=== PATIENT | male | born 1940 | race Caucasian/White ===

== ENCOUNTER 2021-03-05 09:34 | Emergency (ER) | payer MEDICARE, SELFPAY ==
--- NOTE | ~2021-03-05 | XR_ITS ---
EXAMINATION: XR chest 2V DATE: 03/05/2021 09:57 INDICATION: Cough TECHNIQUE: PA and lateral views of the chest are obtained. COMPARISON: 01/20/2015 FINDINGS: The lungs are free of acute opacities. There is no pleural effusion or pneumothorax. Cardio megaly is noted. There are bridging osteophytes at multiple levels in the spine, consistent with diff use idiopathic skeletal hyperostosis (DISH). A triple lead cardiac pacemaker of the left chest wall e nds with leads in expected locations. A healed fracture of the distal right clavicle is noted. IMPRESSION: 1. No acute cardiopulmonary abnormality. 2. Cardiomegaly. Reviewed, dictated and finalized at location A.
--- NOTE | 2021-03-05 09:41 | ED.URI ---
HPI - URI/Sore Throat General Chief Complaint: Upper Respiratory Infection Stated Complaint: nasal drainage/sore throat/cough/mucus Time Seen by Provider: 03/05/21 09:42 Source: patient and RN notes reviewed Mode of arrival: ambulatory Limitations: no limitations History of Present Illness HPI Narrative: 80-year-old male presents with concern for nasal drainage, postnasal drainage, cough that started yesterday. He denies shortness of breath, chest pain, diaphoresis. Denies body aches, chills, sweats. Reports he has been taking Benadryl which helps with the drainage. He reports he has been fully Covid vaccinated, denies any known sick contacts. Denies nausea, vomiting, diarrhea. MD elicited complaint: cough Related Data Home Medications Medication Instructions Recorded Confirmed allopurinol 100 mg PO DAILY 03/05/21 03/05/21 atorvastatin 20 mg PO DAILY 03/05/21 03/05/21 bupropion HCl 75 mg PO DAILY 03/05/21 03/05/21 carvedilol 25 mg PO DAILY 03/05/21 03/05/21 finasteride 5 mg PO DAILY 03/05/21 03/05/21 furosemide 20 mg PO DAILY 03/05/21 03/05/21 levothyroxine 100 mcg PO DAILY 03/05/21 03/05/21 Allergies Allergy/AdvReac Type Severity Reaction Status Date / Time No Known Allergies Allergy Unknown Unverified 03/07/17 09:16 Review of Systems Review of Systems: Narrative: CONSTITUTIONAL: Denies malaise, chills, sweats, or fever. EYES: Denies visual changes, redness, or discharge. ENT: Reports rhinorrhea, congestion, postnasal drainage. Denies sinus pain, otalgia and sore throat. CARDIOVASCULAR: Denies chest pain, palpitations, or edema. RESPIRATORY: Reports cough. Denies dyspnea. GASTROINTESTINAL: Denies abdominal pain, nausea, vomiting, diarrhea SKIN: Denies rash or itching. MUSCULOSKELETAL: Denies myalgia. NEUROLOGIC: Denies headache. All systems reviewed & are unremarkable except as noted in HPI and below PMFSH Social History Social History Gender identity (if verbalized by the patient): Male Comments At time of signature, agree with nursing past medical, surgical, social and family history. There is no relevant family history pertinent to the presenting complaint Exam Narrative: Exam Narrative: GENERAL: Well-appearing, well-nourished, and in no acute distress. HEAD: Normocephalic EYES: PERRLA, conjunctivae clear ENT: Nares clear, turbinates erythematous, clear discharge. Mucous membranes moist. TM pearly meza with sharp light reflex bilaterally; no tragal tenderness. Oropharynx not erythematous without lesions. Tonsils not enlarged and without exudate, no drooling, no hoarseness, no trismus, uvula midline. NECK: Supple. No lymphadenopathy CHEST: Clear to auscultation, breath sounds equal. No wheezing, rhonchi, rales, or stridor. No respiratory distress, speaks in full sentences. HEART: Regular rate and rhythm. No murmur heard. SKIN: Warm, dry, no rash. NEURO: Alert and oriented x3. PSYCH: Normal mood and affect Course Course Emergency Course: Patient is aware of diagnosis, understands and agrees to treatment plan. Anticipatory guidance given. Patient agrees to follow-up as directed and is aware of reasons to seek care at the emergency department. Portions of this record may have been created with voice recognition software Vital Signs Vital signs: Vital Signs Temperature 96.6 F L 03/05/21 09:44 Pulse Rate 84 03/05/21 09:44 Respiratory Rate 12 03/05/21 09:44 Blood Pressure 130/82 03/05/21 09:44 Pulse Oximetry 97 03/05/21 09:44 Temperature 96.6 F L 03/05/21 09:44 Pulse Rate 84 03/05/21 09:44 Respiratory Rate 12 03/05/21 09:44 Blood Pressure 130/82 03/05/21 09:44 Pulse Oximetry 97 03/05/21 09:44 Reviewed. MDM - URI/Sore Throat MDM Narrative Medical decision making narrative: Differential diagnosis considered: Piper virus, strep pharyngitis, allergic rhinitis, upper respiratory tract infection, sinusitis, rhinosinusitis, nasopharyngitis. viral pharyngitis, otitis medi
[2021-03-05 09:44] VITALS: BP 130/82; PULSE 84; RESP 12; TEMP 35.9; O2SAT 97
== END 2021-03-05 10:17 | disposition home or self-care (01) ==
PROVIDERS: Emergency Provider Nurse Practitioner
DX: R05 Cough (principal); I48.91 Unspecified atrial fibrillation; E78.00 Pure hypercholesterolemia, unspecified; I10 Essential (primary) hypertension; Z96.653 Presence of artificial knee joint, bilateral; Z96.643 Presence of artificial hip joint, bilateral
CPT/HCPCS: 71046; 99203; G0463

== ENCOUNTER 2021-03-12 09:58 | Emergency (ER) | payer MEDICARE, SELFPAY ==
--- NOTE | 2021-03-12 10:03 | ED.URI ---
HPI - URI/Sore Throat General Chief Complaint: Upper Respiratory Infection Stated Complaint: cough/mucus Time Seen by Provider: 03/12/21 10:03 Source: patient, RN notes reviewed and old records reviewed Mode of arrival: ambulatory Limitations: no limitations History of Present Illness HPI Narrative: 80-year-old male returns to the [facility] with complaints of a continued cough. Had been using medication prescribed and states that he is not getting any better. states that he is on day 8 was seen 4 March 22 for the same. Patient states that his family was concerned because he was seen a week ago and he has not all better. States that his family made him come in and get rechecked. Patient has a history of CHF. States that he is taking his medication daily. +1 edema noted bilateral lower extremities, patient states that it is normal. No new swelling, chest pain, abdominal pain. States that he is fully vaccinated against Covid MD elicited complaint: cough Related Data Home Medications Medication Instructions Recorded Confirmed allopurinol 100 mg PO DAILY 03/05/21 03/05/21 atorvastatin 20 mg PO DAILY 03/05/21 03/05/21 bupropion HCl 75 mg PO DAILY 03/05/21 03/05/21 carvedilol 25 mg PO DAILY 03/05/21 03/05/21 dabigatran etexilate [Pradaxa] 150 mg PO DAILY 03/05/21 03/05/21 finasteride 5 mg PO DAILY 03/05/21 03/05/21 furosemide 20 mg PO DAILY 03/05/21 03/05/21 levothyroxine 100 mcg PO DAILY 03/05/21 03/05/21 montelukast 10 mg PO DAILY 03/05/21 03/05/21 trazodone 100 mg PO DAILY 03/05/21 03/05/21 Allergies Allergy/AdvReac Type Severity Reaction Status Date / Time No Known Allergies Allergy Unknown Unverified 03/07/17 09:16 Review of Systems Review of Systems: All systems reviewed & are unremarkable except as noted in HPI and below Constitutional: Constitutional: Reports no additional constitutional complaints, Denies chills and Denies fever(s) Eyes: Eyes: Reports no additional eye complaints ENT: Reports system reviewed and no additional complaints, except as documented Cardiovascular: Cardiovascular: Reports no additional cardiovascular complaints and Denies chest pain Respiratory: Respiratory: Reports as per HPI, Denies chest congestion, Reports cough, Denies dyspnea and Denies wheezing Gastrointestinal: Gastrointestinal: Reports no additional gastrointestinal complaints, Denies abdominal pain, Denies nausea and Denies vomiting Musculoskeletal: Musculoskeletal: Reports no additional musculoskeletal complaints Integumentary/Breasts: Skin/Breast: Reports system reviewed and no additional complaints, except as docu Neurologic: Reports system reviewed and no additional complaints, except as documented Psychiatric: Psychiatric: Reports no additional psychiatric complaints Allergic/Immunologic: Allergic/Immunologic: Reports no additional allergic/immunologic complaints [facility] Past Medical History Medical History (Updated 03/12/21 @ 10:16 by Kerry Pope) Heart failure High cholesterol Thyroid disease Social History Social History Gender identity (if verbalized by the patient): Male Comments At the time of my signature, I reviewed and agree with the nursing past medical, surgical, social, and family history. There is no relevant family history pertinent to the patient complaint. Exam Const: General: no acute distress and alert Nutritional Appearance: well nourished and obese Orientation/consciousness: patient oriented x3 HENMT: Head: normal to inspection Ears: external ears normal, TM's normal bilaterally and EAC's normal Eyes: Conjunctivae: conjunctivae normal Pupils: Equal, round and reactive pupils present Neck: Neck: normal visual inspection, no lymphadenopathy and no meningeal signs Chest: Chest palpation & inspection: normal inspection of the chest and Pacemaker present Resp: Effort & Inspection: normal respiratory effort and no use of acces
[2021-03-12 10:05] VITALS: BP 159/88; PULSE 76; RESP 16; TEMP 35.9; O2SAT 98
== END 2021-03-12 10:26 | disposition home or self-care (01) ==
PROVIDERS: Emergency Provider Nurse Practitioner
DX: J40 Bronchitis, not specified as acute or chronic (principal); E78.00 Pure hypercholesterolemia, unspecified; I48.91 Unspecified atrial fibrillation; I11.0 Hypertensive heart disease with heart failure; I50.9 Heart failure, unspecified; E07.9 Disorder of thyroid, unspecified
CPT/HCPCS: 99213; G0463

== ENCOUNTER 2021-03-22 14:12 | Emergency (ER) | payer MEDICARE, SELFPAY ==
--- NOTE | 2021-03-22 14:17 | ED.EXTPRO ---
HPI - Extremity Problem General Chief complaint: Extremity Problem,Nontraumatic Stated complaint: BOTH FEET RED/PURPLE/RASH Time Seen by Provider: 03/22/21 14:17 Source: patient and RN notes reviewed History of Present Illness HPI Narrative: Patient is an 80-year-old male who presents the urgent care with complaints of bilateral lower legs turning purple and red . Patient states that this is been a recurrent issue for him for many years but recently started again 2 days ago. Patient states that whenever he elevates the legs, it goes away. Patient states that he called his physician who told him to be checked out at the urgent care. Patient denies of any shortness of breath, lower extremity swelling, or chest pain. Patient denies of any pain to the lower extremities. No other acute complaints. No acute distress noted. Patient aware of the plan of care. Some parts of this dictation were generated by voice recognition software and may contain typographical and/or grammatical inaccuracies. Related Data Home Medications Medication Instructions Recorded Confirmed allopurinol 100 mg PO DAILY 03/05/21 03/05/21 atorvastatin 20 mg PO DAILY 03/05/21 03/05/21 bupropion HCl 75 mg PO DAILY 03/05/21 03/05/21 carvedilol 25 mg PO DAILY 03/05/21 03/05/21 dabigatran etexilate [Pradaxa] 150 mg PO DAILY 03/05/21 03/05/21 finasteride 5 mg PO DAILY 03/05/21 03/05/21 furosemide 20 mg PO DAILY 03/05/21 03/05/21 levothyroxine 100 mcg PO DAILY 03/05/21 03/05/21 montelukast 10 mg PO DAILY 03/05/21 03/05/21 trazodone 100 mg PO DAILY 03/05/21 03/05/21 Allergies Allergy/AdvReac Type Severity Reaction Status Date / Time No Known Allergies Allergy Unknown Unverified 03/07/17 09:16 Review of Systems Review of Systems: Narrative: CONSTITUTIONAL: Denies fever, chills, or sweats. EYES: Denies visual changes, redness, or discharge. ENT: Denies rhinorrhea, congestion, sore throat, or otalgia. CARDIOVASCULAR: Denies chest pain, palpitations, or edema. RESPIRATORY: Denies cough or dyspnea. GASTROINTESTINAL: Denies abdominal pain, nausea, vomiting, or diarrhea. GENITOURINARY: Denies dysuria or hematuria. SKIN: Denies rash or itching. MUSCULOSKELETAL: Reports of redness/purple color changes in bilateral lower legs without pain NEUROLOGIC: Denies headache, numbness, or weakness. All other systems reviewed are negative, except as documented in HPI. [facility] Past Medical History Medical History (Updated 03/22/21 @ 14:36 by JAMAL Holman) Heart failure High cholesterol Thyroid disease Social History Social History Gender identity (if verbalized by the patient): Male Comments At the time of my signature, I reviewed and agree with the nursing past medical, surgical, social, and family history. There is no relevant family history pertinent to the patient complaint. Exam Narrative: Exam Narrative: GENERAL: This is a well-nourished, well-developed patient, in no apparent distress. HEAD: normocephalic, atraumatic. EYES: PERRL. Sclera clear/white. Vision is grossly intact. EARS: External ears normal NOSE: External nose normal with no obvious nasal discharge, nares without redness, no rhinorrhea. THROAT: Mucous membranes moist NECK: Neck supple CARDIOVASCULAR: Regular rate and rhythm without murmurs, gallops, or rubs. RESPIRATORY: Clear to auscultation. Breath sounds equal bilaterally. No wheezes, rales, or rhonchi. SKIN: warm, intact with no suspicious lesions or rash, good texture and turgor. NEURO: awake, alert, and oriented to person, place and time. There were no obvious focal neurologic abnormalities. EXTREMITIES: Severe chronic venous insufficiency to bilateral lower extremities with ecchymosis extending from the distal tip of the toes above the ankle with moderate tenderness; notable bilateral pedal pulses with decreased capillary refill Course Vital Signs Vital signs: Vital Signs Temp
[2021-03-22 14:20] VITALS: BP 139/65; PULSE 64; RESP 18; TEMP 36.5; O2SAT 98
== END 2021-03-22 14:43 | disposition left against medical advice (07) ==
PROVIDERS: Emergency Provider Nurse Practitioner Family
DX: I87.2 Venous insufficiency (chronic) (peripheral) (principal); I11.0 Hypertensive heart disease with heart failure; I50.9 Heart failure, unspecified; E78.00 Pure hypercholesterolemia, unspecified; I48.91 Unspecified atrial fibrillation; E07.9 Disorder of thyroid, unspecified; Z96.653 Presence of artificial knee joint, bilateral; Z96.643 Presence of artificial hip joint, bilateral
CPT/HCPCS: 99212; G0463

== ENCOUNTER → 2021-10-19 09:49 | Outpatient (CLI) | payer MEDICARE, SELFPAY ==
--- NOTE | ~2021-10-19 | XR_ITS ---
XR lumbar spine min 4V DATE: 10/19/2021 10:46 INDICATION: Peripheral sensory neuropathy TECHNIQUE: AP, lateral, bilateral oblique views, coned lateral lumbosacral view COMPARISON: None FINDINGS: Diffuse osteopenia. There is prominent anterior wedge compression fracture deformity of L1. There is suggestion of a comp ression fracture deformity of partially included T10. There is prominent degenerative disc disease at T12-L1, moderate degenerative disc disease at L1 to, L3-4 and severe degenerative disc disease at L4-5 and L5-S1. There is prominent degenerative change at the apophyseal joints with associated grade 1 anterolisthes is at L4-5. The sacroiliac joints are intact. Incidentally noted are multiple calcified faceted gallstones. Status post ventral abdominal wall hernia repair. Status post bilateral total hip arthroplasty. IMPRESSION: Osteopenia Compression pressure fracture deformities of T10 and to a greater extent L1 Multilevel degenerative disc disease, most prominent at L4-5 and L5-S1 Degenerative change at the apophyseal joints with associated grade 1 anterolisthesis at L4-5 Bilateral hip arthroplasty Cholelithiasis Reviewed, dictated and finalized at location B. YLENE [employer] IMPRESSION: Osteopenia Compression pressure fracture deformities of T10 and to a greater extent L1 Multilevel degenerative disc disease, most prominent at L4-5 and L5-S1 Degenerative change at the apophyseal joints with associated grade 1 anterolist hesis at L4-5 Bilateral hip arthroplasty Cholelithiasis
== END ==
DX: G60.8 Other hereditary and idiopathic neuropathies (principal); M85.88 Other specified disorders of bone density and structure, other site; M51.36 Other intervertebral disc degeneration, lumbar region; M43.16 Spondylolisthesis, lumbar region; Z96.643 Presence of artificial hip joint, bilateral; K80.20 Calculus of gallbladder without cholecystitis without obstruction
CPT/HCPCS: 72110

== ENCOUNTER 2021-12-27 14:26 | Outpatient (CLI) | payer MEDICARE, SELFPAY ==
[2021-12-27 15:29] LABS: Anion Gap 10 mmol/L (8-16); Blood Urea Nitrogen 14 mg/dL (9-20); Calcium 7.8 mg/dL (8.4-10.2); Carbon Dioxide 33 mmol/L (22-30); Chloride 94 mmol/L (98-107); Estimated Glomerular Filt Rate > 60; Glucose 105 mg/dL (65-110); Potassium 2.9 mmol/L (3.4-5.0); Sodium 137 mmol/L (137-145)
[2021-12-27 16:13] LABS: Add Urine Microscopic? YES; Appearance Urine Clear (Clear); Bilirubin Urine Negative (Negative); Blood Urine 1+ (Negative); Color Urine Yellow (Yellow); Glucose Urine UA Negative (Negative); Ketones Urine Negative (Negative); Leukocyte Esterase Ur Negative LEU/UL (Negative); Mucus Urine Rare /lpf; Nitrate Urine Negative (Negative); Protein Urine Negative (Negative); RBC Urine 0-2 /hpf (0-2); Specific Grav Ur 1.011 (1.001-1.035); Squamous Epithelial Cell Urine Rare /hpf (Few); Urobilinogen Urine Negative mg/dL (<2.0); WBC Urine 0-3 /hpf
== END 2021-12-27 14:27 | disposition home or self-care (01) ==
LOC: ANHLAB 14:43
DX: R82.998 Other abnormal findings in urine (principal)
CPT/HCPCS: 36415; 80048; 81001

== ENCOUNTER 2022-01-09 11:39 | Outpatient (CLI) | payer MEDICARE, SELFPAY ==
[2022-01-09 12:19] LABS: Magnesium 1.2 mg/dL (1.6-2.3)
[2022-01-09 12:25] LABS: Appearance Urine Clear (Clear); Bilirubin Urine Negative (Negative); Color Urine Yellow (Yellow); Glucose Urine UA Negative (Negative); Ketones Urine Negative (Negative); Leukocyte Esterase Ur 1+ LEU/UL (NEGATIVE); Nitrate Urine Negative (Negative); Protein Urine Negative (Negative); Specific Grav Ur 1.015 (1.001-1.035); Urobilinogen Urine 0.2 mg/dL (<2.0); pH Urine 6.5 (5.0-9.0)
[2022-01-09 12:29] LABS: Bacteria Urine Trace /hpf; Mucus Urine Rare /lpf; Squamous Epithelial Cell Urine Occasional /hpf (Few); WBC Urine 31-50 /hpf (0-3)
[2022-01-09 12:30] LABS: Add Urine Microscopic? YES; Blood Urine Trace-Intact (Negative)
[2022-01-17 12:56] LABS: Ionized Calcium 4.7 mg/dL (4.8-5.6)
== END 2022-01-09 11:40 | disposition home or self-care (01) ==
LOC: ANHLAB 11:43
DX: R31.29 Other microscopic hematuria (principal)
CPT/HCPCS: 36415; 81001; 82330; 83735; 87086; 87088

== ENCOUNTER → 2022-03-16 11:26 | Outpatient (CLI) | payer MEDICARE, SELFPAY ==
--- NOTE | ~2022-03-16 | XR_ITS ---
XR abdomen/kub 1V 03/16/2022 12:07 INDICATION: Abdominal bloating TECHNIQUE: KUB COMPARISON: None FINDINGS: Bowel gas pattern is normal. There are splenic arterial calcifications. There are gallstone s. There bilateral total hip arthroplasties. There is a penile prosthetic device with reservoir overl marilee the right lower pelvis. Moderate-severe lumbar spondylosis. There is no evidence of free air, ma ss, organomegaly, ascites or obstruction. No abnormal calculi are seen. The bones appear intact. IMPRESSION: 1: No acute abdominal abnormality identified. 2: Cholelithiasis. Reviewed, dictated and finalized at location A.
--- NOTE | ~2022-03-16 | US_ITS ---
US abdomen limited INDICATION: Bloating. PROCEDURE: Realtime right upper abdominal ultrasound. COMPARISON: No prior studies for comparison. FINDINGS: The pancreas is normal without focal mass or pancreatic ductal dilation. Liver echotexture is increased, consistent with fatty infiltration. There is normal directional flow in the portal ve in. There are gallstones. No gallbladder wall thickening or pericholecystic fluid. Common bile duct alfred ures 4.7 mm. No sonographic Timmons's sign. IMPRESSION: 1: Cholelithiasis. 2:Hepatic steatosis. Reviewed, dictated and finalized at location A.
== END ==
DX: R14.0 Abdominal distension (gaseous) (principal); K80.20 Calculus of gallbladder without cholecystitis without obstruction; K76.0 Fatty (change of) liver, not elsewhere classified
CPT/HCPCS: 74018; 76705

== ENCOUNTER → 2022-06-11 09:59 | Outpatient (CLI) | payer MEDICARE, SELFPAY ==
--- NOTE | ~2022-06-11 | XR_ITS ---
EXAM: XR lumbar spine 2-3V DATE: 06/11/2022 11:41 HISTORY: Other intervertebral disc degeneration, lumbar region . COMPARISON: 10/19/2021. FINDINGS: 5 nonrib-bearing lumbar-type vertebral bodies. T12-L1 fusion. Trace 1 to 2 mm retrolisthes is at L1-2. 9 mm anterolisthesis at L4-5. Mild height loss at T10. Mild disc space narrowing at L1-2 and L3-4. Moderate disc space narrowing at L5-S1.Severe narrowing and vacuum phenomenon at L4-5. Mult ilevel facet sclerosis and hypertrophy. No fracture or dislocation. Bilateral hip arthroplasties. Her chris mesh anchors. Aortic calcifications, without evident aneurysm. Cholelithiasis. IMPRESSION: Grade 2 anterolisthesis at L4-5, with severe degenerative disc disease. Elsewhere, there is mild-moderate degenerative disc disease. Multilevel moderate arthropathy. Reviewed, dictated and finalized at location K. IMPRESSION: Grade 2 anterolisthesis at L4-5, with severe degenerative disc dise ase. Elsewhere, there is mild-moderate degenerative disc disease. Multilevel mo derate arthropathy.
--- NOTE | ~2022-06-11 | DEXA_ITS ---
Bone Density Report Name: ALICIA MURRAY Age: 81 Sex: Male Ethnicity: White Date of : 1940 Indication: screening for osteoporosis; height loss; prior fracture; Referring Provider: ENRIQUETA POLANCO Study: Bone densitometry was performed. Exam Date: June 11, 2022 Accession number: [id number] Bone Density: Region BMD T-score Z-score Classification AP Spine (L1-L4) 1.409 2.9 4.1 Normal World Health Organization criteria for BMD impression classify patients as: Normal (T-score at or above -1.0), Osteopenia (T-score between -1.0 and -2.5), or Osteoporosis (T-score at or below -2.5). Clinical Information Provided by Patient: Have had a previous hip or vertebral fracture Has had a low trauma fracture Has 3 or more alcoholic drinks per day Patient maximum height was 74.5 No regular weight bearing exercise Does not regularly consume dairy products Impression: The patient has normal bone mass. The patient has risk factors, including: excessive alcohol use, previous fracture. Discussion: INCREASED RISK OF FRACTURE DUE TO HISTORY OF LOW TRAUMA FRACTURE. The patient's previous fracture puts the patient at high risk of a future fracture. In untreated patients, the risk of osteoporotic fracture increases approximately two-fold for each 1.0 SD decrease in T-score. Low bone density is not the only risk factor for fracture; also consider factors such as patient's age, frailty or poor health, risk of falling, risk of injury, previous osteoporotic fracture, family history of osteoporosis, cigarette smoking, low body weight, etc. Not everyone with a low trauma fracture has osteoporosis; osteomalacia and other metabolic bone disorders should also be considered. Patients who have osteoporosis should be evaluated for specific diseases and conditions (secondary causes) that may cause or contribute to bone loss and fracture risk. National Osteoporosis Foundation (NOF) recommends pharmacologic intervention for patients with a prior low trauma hip or vertebral fracture regardless of BMD T-score. The patient should follow a healthful lifestyle (good nutrition with adequate calcium and vitamin D, and appropriate weight-bearing exercise). Follow-Up: Consider a repeat BMD and Vertebral Fracture Assessment (VFA) exam in 2 years or sooner if medically necessary, to reassess this patient's status. Reported by: EN on 06/11/2022 12:20:00 PM. Reviewed, dictated and finalized at location AHuyen [facility] CENTERDenise
== END ==
DX: M51.36 Other intervertebral disc degeneration, lumbar region (principal); M85.88 Other specified disorders of bone density and structure, other site; M43.16 Spondylolisthesis, lumbar region
CPT/HCPCS: 72100; 77080

== ENCOUNTER 2022-08-26 10:45 | Emergency (ER) | payer MEDICARE, SELFPAY ==
--- NOTE | ~2022-08-26 | CT_ITS ---
CTA OF lower cavity left EXAMINATION: CTA LE LT DATE: 08/26/2022 16:07 INDICATION: Rule out tibial plateau fracture or arterial injury. TECHNIQUE: Computed tomography (CT) of the left lower extremity was performed with 100 mL Omnipaque 3 50 intravenous contrast, timed for arterial enhancement. Automated exposure control and iterative rec onstruction technique were employed. The dose-length product was 764.21 mGy-cm. COMPARISON: X-ray left knee, same date FINDINGS: Scattered calcified atherosclerotic arterial plaques. Short segment obscuration of the popl iteal artery secondary to metal artifact from the knee arthroplasty, which therefore cannot be evalua ok. Patent trifurcation. Large anteromedial subcutaneous hematoma with fluid fluid levels in small f oci of active extravasation. Moderate knee joint effusion. Intact, uncomplicated appearing left knee arthroplasty. Osteopenia. No osseous fracture or dislocation. Diffuse bilateral subcutaneous edema IMPRESSION: Large anteromedial subcutaneous hematoma with small foci of active extravasation. No CT evidence of h ardware related consultation. No acute osseous finding. No acute arterial injury detected, within the limitations noted above. Results reported telephonically to Dr. Gordon by Dr. Mcclure at 4:18 PM on 08/26/2022. Reviewed, dictated and finalized at location K. OTICS PROSTHETICS ASSISTANT IMPRESSION: Large anteromedial subcutaneous hematoma with small foci of active extravasatio n. No CT evidence of hardware related consultation. No acute osseous finding. N o acute arterial injury detected, within the limitations noted above. Results reported telephonically to Dr. Gordon by Dr. Mcclure at 4:18 PM on 2021.
--- NOTE | ~2022-08-26 | CT_ITS ---
EXAMINATION: CT brain wo con DATE: 08/26/2022 12:40 INDICATION: Fall with head injury TECHNIQUE: Computed tomography (CT) of the head was performed without intravenous contrast. Sagittal and coronal reconstructions were performed. The mA was adjusted according to patient size. Iterative reconstruction technique was employed. The dose-length product was 605.33 mGy-cm. COMPARISON: None FINDINGS: There is a screw in the left temporoparietal skull. Correlate with surgical history. No fracture. No acute intracranial hemorrhage, acute infarction or abnormal extra axial fluid collection. There is mi ld scattered white matter hypoattenuation consistent with chronic small vessel ischemic disease. Symm etric prominence of the sulci consistent with moderate age-appropriate diffuse cerebral volume loss. Ventricles are normal and symmetric. No mass/mass effect. Mild mucoperiosteal thickening in bilateral ethmoid sinuses. Changes of right intraocular lens replacement. The orbits and mastoid air cells are normal. IMPRESSION: 1. No fracture or acute intracranial process. 2. Age-related changes including moderate diffuse volume loss and mild scattered white matter hypoatt enuation consistent with chronic small vessel ischemic disease. Reviewed, dictated and finalized at location A. ACTORY MIXER IMPRESSION: 1. No fracture or acute intracranial process. 2. Age-related changes including moderate diffuse volume loss and mild scattere d white matter hypoattenuation consistent with chronic small vessel ischemic di sease.
--- NOTE | ~2022-08-26 | XR_ITS ---
EXAMINATION: XR shoulder LT min 2V DATE: 08/26/2022 12:14 INDICATION: Generalized left shoulder pain post fall TECHNIQUE: AP internally and externally rotated, AP oblique externally rotated and transscapular Y vi ews of the left shoulder were obtained. COMPARISON: None FINDINGS: Normal alignment. No fracture. Mild to moderate glenohumeral osteoarthritis with mild nonuniform salima nt space narrowing and moderate-sized marginal osteophytes about the humeral head. Moderate acromiocl avicular osteoarthritis. 3-lead cardiac pacemaker projects over the anterolateral left chest wall wit h the distal tip of one of the leads projecting in the lateral left ventricle likely within a coronar y vein. Visualized portions of the left lung are clear. 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 No acute osseous abnormality. Reviewed, dictated and finalized at location A. 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 No acute osseo us abnormality.
--- NOTE | ~2022-08-26 | CT_ITS ---
EXAMINATION: CT cervical spine wo con DATE: 08/26/2022 12:40 INDICATION: Anterior head injury post fall TECHNIQUE: Computed tomography (CT) of the cervical spine was performed without intravenous contrast. Automated exposure control and iterative reconstruction technique were employed. The dose-length pro duct was 556.19 mGy-cm. COMPARISON: None FINDINGS: Reversal of the normal cervical lordosis. Chronic appearing anterior wedging at C5 with approximately 20% anterior vertebral body height loss. No acute fractures. Moderate to severe disc height loss at C3-C4 through C5-C6 and mild disc height loss at remaining levels from C2-C3 through T1-T2. Posterior disc osteophyte complex at C4-C5 and C5-C6 result in mild central canal stenosis. Multilevel moderat e to severe cervical facet and uncovertebral osteoarthritis which contributes to moderate neural fora frances stenosis on the left. At C3-C4 through C6-C7 and on the right at C3-C4. Cervical soft tissues a re unremarkable. Mild emphysema at the left apex. Partially visualized cardiac pacemaker leads along the left subclavian vein. IMPRESSION: 1. Chronic appearing mild anterior wedging at C5. No acute fracture. 2. Moderate to severe cervical spondylosis. Reviewed, dictated and finalized at location A. MIC TILE SETTER
--- NOTE | ~2022-08-26 | XR_ITS ---
EXAMINATION: XR knee LT min 4V DATE: 08/26/2022 12:14 INDICATION: Anterior left knee swelling and bruising post fall TECHNIQUE: Anteroposterior, 2 oblique and crosstable lateral views of the left knee were obtained COMPARISON: None. FINDINGS: Left total knee arthroplasty which appears well seated in near-anatomic alignment. No periprosthetic lucency to suggest loosening or infection. No fracture. Small left knee joint effusion and/or synovit is at the suprapatellar pouch. More prominent prepatellar soft tissue swelling with increased density which given the history of trauma suggests a likely subcutaneous hematoma. IMPRESSION: 1. Left total knee arthroplasty in near-anatomic alignment. No acute osseous abnormality. 2. Prominent prepatellar soft tissue swelling with possible subcutaneous hematoma. Reviewed, dictated and finalized at location A. INUITY TESTER IMPRESSION: 1. Left total knee arthroplasty in near-anatomic alignment. No acute osseous ab normality. 2. Prominent prepatellar soft tissue swelling with possible subcutaneous hemato ma.
[2022-08-26 11:27] VITALS: BP 100/56; PULSE 73; RESP 16; TEMP 36.1; O2SAT 94
[2022-08-26 13:25] VITALS: BP 135/84; PULSE 73; O2SAT 93
--- NOTE | 2022-08-26 14:55 | ED.GENADULT ---
HPI - General Adult General Chief complaint: Extremity Injury, Lower Stated complaint: left knee injury Time Seen by Provider: 08/26/22 14:36 History of Present Illness HPI narrative: 81-year-old male history of pacemaker, on a blood thinner, presented with mechanical fall with left knee pain. Per patient, he was walking around and turning off lights this morning when he did not see where he was going so had mechanical fall hitting his left knee, and forehead. He also reports falling and scraping the back of his back and left shoulder. He denies LOC, dizziness, nausea, vomiting, chest pain, shortness of breath, abdominal pain, sick contacts. He reports up to date with TDAP Past Medical History: CHF, hypothyroid, pacemaker placement Past Surgical History: Left knee replacement, pacemaker placement Medications: Carvedilol, dabigatran, finasteride, furosemide levothyroxine Allergies: No known drug allergies Social: Denies smoking, alcohol, recreational drugs Related Data Home Medications Medication Instructions Recorded Confirmed allopurinol 100 mg tablet 100 mg PO DAILY 03/05/21 03/05/21 atorvastatin 20 mg tablet 20 mg PO DAILY 03/05/21 03/05/21 bupropion HCl 75 mg tablet 75 mg PO DAILY 03/05/21 03/05/21 carvedilol 25 mg tablet 25 mg PO DAILY 03/05/21 03/05/21 dabigatran etexilate 150 mg 150 mg PO DAILY 03/05/21 03/05/21 capsule (Pradaxa) finasteride 5 mg tablet 5 mg PO DAILY 03/05/21 03/05/21 furosemide 20 mg tablet 20 mg PO DAILY 03/05/21 03/05/21 levothyroxine 100 mcg tablet 100 mcg PO DAILY 03/05/21 03/05/21 montelukast 10 mg tablet 10 mg PO DAILY 03/05/21 03/05/21 trazodone 100 mg tablet 100 mg PO DAILY 03/05/21 03/05/21 Allergies Allergy/AdvReac Type Severity Reaction Status Date / Time No Known Allergies Allergy Unknown Unverified 10/25/21 14:38 Review of Systems Review of Systems: See HPI PMF Past Medical History Medical History Heart failure High cholesterol Thyroid disease Family History Family History Sibling Family history of lung cancer Father Family history of coronary artery disease Social History Social History Smoking status: Never smoker Second hand tobacco smoke exposure: No Alcohol intake: current Gender identity (if verbalized by the patient): Male Comments See HPI Exam Narrative: APPEARANCE: Alert, calm and cooperative, no acute distress, phonating, sitting comfortably during visit, elevated BMI HEAD: Abrasion to forehead, no lacerations, no step-offs. EYES: Pupils equal round an reactive to light, extra ocular movements intact, no conjunctival injection NOSE: Normal no drainage NECK: Supple, without meningismus RESPIRATORY: Lungs clear to auscultation bilaterally, no wheezes/rales/rhonchi, breathing comfortably CARDIOVASCULAR: Regular rate and rhythm, no visible jugular venous distension ABDOMINAL: Soft, nontender, nondistended, no guarding, no rebound/peritoneal signs, no costovertebral tenderness to palpation BACK: Abrasion to left lower back, no lacerations, no midline tenderness to palpation, no step offs EXTREMITIES: Ecchymosis to left knee, non-tense, limited range of motion to knee in the setting of pain and swelling, remaining extremities atraumatic, upper extremities shoulder full range of motion, no gross deformities, palpable peripheral pulses, warm, well perfused, no tenderness to bilateral calves. NEURO: Alert, moving all extremities symmetrically SKIN:: Warm, dry. Normal color PSYCHIATRIC: Normal affect/mood Course Reevaluation(s) Reevaluation #1: CTA results updated by radiologist. Reporting subcuteneous hematoma to anterior knee with blush suggestive of active bleeding. No evidence of arterial injury. Will consult orthopedics for further evaluation Reevaluation #2: Discussion held with orthopedic
[2022-08-26] MEDS: ACETAMINOPHEN 500 MG TABLET 1000 MG PO (15:19)
[2022-08-26] MEDS: MORPHINE SULFATE (*CRX) 4 MG/ML INJ IV PUSH (15:19)
[2022-08-26 15:27] LABS: Basophils Percent Auto 0.6 % (0.2-1.2); Eosinophils Absolute Auto 0.1 K/mm3 (0-0.3); Eosinophils Percent Auto 0.7 % (0-4.4); Hematocrit 39.9 % (42.0-52.0); Hemoglobin 13.3 g/dL (14.0-18.0); Immature Granulocyte Absolute 0.05 K/mm3 (0.00-0.031); Immature Granulocyte Percent A 0.7 % (0-0.5); Lymphocytes Absolute Auto 2.49 K/mm3 (0.9-3.2); Lymphocytes Percent Auto 36.6 % (18.3-44.2); Mean Corpuscular HGB Conc 33.3 g/dl (32-36); Mean Corpuscular Hemoglobin 33.8 pg (26-34); Mean Corpuscular Volume 101.5 fl (80-100); Mean Platelet Volume 10.4 fl (7.4-10.4); Monocytes Absolute Auto 0.7 K/mm3 (0.1-0.6); Monocytes Percent Auto 9.5 % (2.6-8.5); Neutrophils Absolute Auto 3.5 K/mm3 (1.3-6.7); Neutrophils Percent Auto 51.9 % (45.5-73.1); Platelet Count Result 135 k/mm3 (150-375); Red Blood Count 3.93 M/mm3 (4.6-6.20); Red Cell Distribution Width 14.5 % (11.5-14.5); White Blood Count 6.8 K/mm3 (4.5-10.0)
[2022-08-26 15:29] VITALS: BP 120/82; PULSE 78; O2SAT 92
[2022-08-26 15:39] LABS: Anion Gap 5 mmol/L (8-16); Blood Urea Nitrogen 14 mg/dL (9-20); Calcium 8.3 mg/dL (8.4-10.2); Carbon Dioxide 36 mmol/L (22-30); Chloride 92 mmol/L (98-107); Estimated Glomerular Filt Rate > 60; Glucose 108 mg/dL (65-110); Potassium 4.2 mmol/L (3.4-5.0); Sodium 133 mmol/L (137-145)
[2022-08-26 15:40] LABS: Prothrombin Time 21.8 Seconds (11.1-14.7)
== END 2022-08-26 17:59 | disposition home or self-care (01) ==
PROVIDERS: Emergency Provider Emergency Medicine
DX: S80.02XA Contusion of left knee, initial encounter (principal); I50.9 Heart failure, unspecified; W01.0XXA Fall on same level from slipping, tripping and stumbling without subsequent striking against object, initial encounter
CPT/HCPCS: 36415; 70450; 72125; 73030; 73564; 73706; 80048; 85025; 85055; 85610; 96374; 99284; A9270; J2270; Q9967

== ENCOUNTER 2023-03-23 13:54 | Inpatient (IN) | payer MEDICARE, SELFPAY ==
[2023-03-23] VITALS (13 sets, daily range): BP systolic 88–126; BP diastolic 49–84; PULSE 73–80; RESP 12–18; TEMP 35.9–36.6; O2SAT 94–97; BMI 42.8; BMI 41.4
--- NOTE | ~2023-03-23 | XR_ITS ---
EXAMINATION: XR chest 1V portable Exam Date/Time: 03/23/2023 14:15 CDT HISTORY: low bp, lightheaded Comparison: 03/05/2021. RESULT: Lines, tubes, and devices: Left chest AICD with intact leads. Lungs and pleura: Clear. Cardiomediastinal silhouette: Stable. Other: No acute osseous or upper abdominal finding. IMPRESSION: No acute cardiopulmonary process. Reviewed, dictated and finalized at location K.
--- NOTE | 2023-03-23 13:59 | ECG_ITS ---
Measurements Intervals [place] Rate: 73 P: GA: 0 QRS: 216 QRSD: 184 T: 35 QT: 483 QTc: 533 Interpretive Statements ELECTRONIC ATRIAL PACEMAKER WITH INHIBITION ELECTRONIC VENTRICULAR PACEMAKER NO FURTHER INTERPRETATION IS POSSIBLE ABNORMAL ECG NO PREVIOUS ECG AVAILABLE FOR COMPARISON Electronically Signed On 03-23-2023 21:53:13 CDT by Driss Mcneil D.O.
[2023-03-23 14:13] LABS: Basophils Absolute Auto 0.1 K/mm3 (0.0-0.1); Basophils Percent Auto 0.4 % (0.2-1.2); Eosinophils Absolute Auto 0.1 K/mm3 (0-0.3); Eosinophils Percent Auto 0.7 % (0-4.4); Hematocrit 44.1 % (42.0-52.0); Hemoglobin 14.2 g/dL (14.0-18.0); Immature Granulocyte Absolute 0.08 K/mm3 (0.00-0.031); Immature Granulocyte Percent A 0.4 % (0-0.5); Lymphocytes Absolute Auto 12.31 K/mm3 (0.9-3.2); Lymphocytes Percent Auto 64.6 % (18.3-44.2); Mean Corpuscular HGB Conc 32.2 g/dl (32-36); Mean Corpuscular Hemoglobin 34.1 pg (26-34); Mean Platelet Volume 10.4 fl (7.4-10.4); Monocytes Absolute Auto 0.9 K/mm3 (0.1-0.6); Monocytes Percent Auto 4.9 % (2.6-8.5); Neutrophils Absolute Auto 5.5 K/mm3 (1.3-6.7); Nucleated Red Blood Cells Perc 0.1 % (0.0-0.2); Platelet Count Result 215 k/mm3 (150-375); Red Blood Count 4.16 M/mm3 (4.6-6.20); Red Cell Distribution Width 13.4 % (11.5-14.5); White Blood Count 19.1 K/mm3 (4.5-10.0)
[2023-03-23 14:27] LABS: Atypical Lymphocytes Present; Platelet Estimate Adequate (Adequate); Schistocytes None Seen (NORMAL)
[2023-03-23 14:32] LABS: Alanine Aminotransferase 28 U/L (6-50); Alkaline Phosphatase 51 U/L (38-126); Anion Gap 10 mmol/L (8-16); Aspartate Amino Transferase 35 U/L (17-59); Bilirubin,Total 0.8 mg/dL (0.2-1.3); Blood Urea Nitrogen 44 mg/dL (9-20); Calcium 8.7 mg/dL (8.4-10.2); Carbon Dioxide 33 mmol/L (22-30); Chloride 93 mmol/L (98-107); Estimated CRCL calculation 65 ml/min; Estimated Glomerular Filt Rate 58; Glucose 92 mg/dL (65-110); Potassium 3.9 mmol/L (3.4-5.0); Sodium 136 mmol/L (137-145)
[2023-03-23 15:41] LABS: Lactic Acid Reflex 1.2 mmol/L (0.7-2.0)
[2023-03-23 15:44] LABS: INR 1.9; Prothrombin Time 22.7 Seconds (11.1-14.7)
[2023-03-23 15:45] LABS: CRP < 0.5 mg/dL (<1.0); Partial Thromboplastin Time 44.7 SECONDS (22.3-36.8)
--- NOTE | 2023-03-23 16:11 | PC.NURSE ---
This RN assumed care of patient. This RN took report from Mary ZAMORA.
[2023-03-23 16:28] LABS: Appearance Urine Clear (Clear); Bacteria Urine None Seen /hpf; Bilirubin Urine Negative (Negative); Blood Urine Negative (Negative); Color Urine Yellow (Yellow); Glucose Urine UA Negative (Negative); Hyaline Casts Urine Present /lpf; Ketones Urine Trace mg/dL (Negative); Leukocyte Esterase Ur Trace LEU/UL (Negative); Nitrate Urine Negative (Negative); Protein Urine Negative (Negative); RBC Urine 0-2 /hpf (0-2); Specific Grav Ur 1.017 (1.001-1.035); Squamous Epithelial Cell Urine Occasional /hpf (Few); Urobilinogen Urine 0.2 mg/dL (<2.0); WBC Urine 0-5 /hpf
[2023-03-23 16:29] LABS: Add Urine Microscopic? YES
--- NOTE | 2023-03-23 17:06 | PC.NURSE ---
This RN ordered the pt dinner.
--- NOTE | 2023-03-23 17:10 | ED.DIZZY ---
HPI - Dizziness General Chief Complaint: Dizziness Stated Complaint: hypotension Time Seen by Provider: 03/23/23 14:36 Source: patient Mode of arrival: ambulatory Limitations: no limitations History of Present Illness HPI Narrative: 82-year-old male presents today via EMS with concerns of low blood pressure and dizziness at home. Per EMS blood pressure was 60s over 40s at home. Patient does have a golf cart attendant at home that was taking her blood pressures. Patient was given a 250 mL bolus upon transport to this facility. First initial blood pressure was 88 systolic and increased up to 100 systolic. Upon arrival patient feeling better. Denies any fevers, body aches, chills. Patient states he did just get out of [facility] about a week ago for concerns of a UTI. Patient was discharged home with oral antibiotics. He is due Saturday to go for repeat urinalysis. He denies burning on urination, difficulty urinating, or foul-smelling urine. Patient denies any cough, runny nose, body aches, chills, fevers. Patient does have subconjunctival hemorrhage noted to the right eye which she is currently being treated with eyedrops for for the last couple days. Per patient and son who is at bedside caretakers at home have given him his daily medications but not his nighttime medications. The 2 medications are in 2 different spots also. Related Data Home Medications Medication Instructions Recorded Confirmed allopurinol 100 mg tablet 100 mg PO DAILY 03/05/21 03/05/21 bupropion HCl 75 mg tablet 75 mg PO DAILY 03/05/21 03/05/21 carvedilol 25 mg tablet 25 mg PO DAILY 03/05/21 03/05/21 dabigatran etexilate 150 mg 150 mg PO DAILY 03/05/21 03/05/21 capsule (Pradaxa) finasteride 5 mg tablet 5 mg PO DAILY 03/05/21 03/05/21 furosemide 20 mg tablet 20 mg PO DAILY 03/05/21 03/05/21 montelukast 10 mg tablet 10 mg PO DAILY 03/05/21 03/05/21 trazodone 100 mg tablet 100 mg PO DAILY 03/05/21 03/05/21 Allergies Allergy/AdvReac Type Severity Reaction Status Date / Time No Known Allergies Allergy Unknown Verified 03/23/23 14:13 Review of Systems Review of Systems: All systems reviewed & are unremarkable except as noted in HPI and below ENT: Reports as per HPI Cardiovascular: Cardiovascular: Reports as per HPI Respiratory: Respiratory: Reports as per HPI Gastrointestinal: Gastrointestinal: Reports as per HPI Musculoskeletal: Musculoskeletal: Reports as per HPI Integumentary/Breasts: Skin/Breast: Reports as per HPI Neurologic: Reports as per HPI Psychiatric: Psychiatric: Reports as per HPI [facility] Past Medical History Medical History Heart failure High cholesterol Thyroid disease Surgical History Surgical History Pacemaker Family History Family History Sibling Family history of lung cancer Father Family history of coronary artery disease Social History Social History Smoking status: Never smoker Second hand tobacco smoke exposure: No Alcohol intake: current Gender identity (if verbalized by the patient): Male Exam Const: General: cooperative, healthy appearing, comfortable, no acute distress and well developed Orientation/consciousness: patient oriented x3 HENMT: Head: normal to inspection Eyes: General: appearance normal, both eyes and all related structures Alignment and Position: alignment normal Conjunctivae: conjunctival abnormality right subconjunctival hemorrhage Resp: Effort & Inspection: normal respiratory effort and able to speak in complete sentences Auscultation: clear to auscultation bilaterally Cardio: Rate: regular rate Rhythm: regular rhythm Heart sounds: S1 normal heart sound present and S2 normal heart sound present Skin: Other: multiple bruising noted of various stages and abras
--- NOTE | 2023-03-23 18:10 | PM.IMHP ---
H&P: HPI History of Present Illness Date/Time: 03/23/23 18:10 Chief Complaint: dizziness Narrative: This is an 82-year-old male patient who lives in his own home and has /47 care. His 2 sons are at the bedside helping him answer questions. The patient stated he was recently discharged from [facility] with a uti about a week ago. He also stated that he fell out of bed on week ago ago and has multiple bruises and skin tears. He has multiple dressings on aravind arms. He has completed his abx for uti. His care given checked his bp and it was found to be low and then was brought to the er. The patient denies any further urinary tract symptoms. His white count is 19.1. I did remove his dressings from his bilateral forearms but none of his abrasions appear to be infected. His urine was negative for UTI. Chest x-ray was read as no acute cardiopulmonary disease. No antibiotics were started at this time as there was no source of infection noted. It was felt that the patient had a change in medication and perhaps the caregiver unintentionally had given and the patient too much blood pressure medication. Blood cultures were obtained and the patient was responding to IV fluids. His blood pressure came up to 123/81 and is now 103/60. The patient is being admitted to observation status on the date of service of 03/23/2023. Review of Systems Review of Systems: All systems reviewed & are unremarkable except as noted in HPI and below Constitutional: Constitutional: Reports as per HPI and Reports no additional constitutional complaints Eyes: Eyes: Reports as per HPI and Reports no additional eye complaints ENT: Reports system reviewed and no additional complaints, except as documented and Reports Normal hearing present Cardiovascular: Cardiovascular: Reports no additional cardiovascular complaints Respiratory: Respiratory: Reports no additional respiratory complaints and Reports no additional respiratory complaints Gastrointestinal: Gastrointestinal: Reports as per HPI and Reports no additional gastrointestinal complaints Musculoskeletal: Musculoskeletal: Reports no additional musculoskeletal complaints Integumentary/Breasts: Skin/Breast: Reports system reviewed and no additional complaints, except as docu and Reports as per HPI Neurologic: Reports system reviewed and no additional complaints, except as documented, Reports as per HPI and Reports Normal hearing present Psychiatric: Psychiatric: Reports no additional psychiatric complaints and Reports as per HPI Endocrine: Endocrine: Reports no additional endocrine complaints Hematologic/Lymphatic: Hematologic/Lymphatic: Reports no additional hematologic/lymphatic complaints Allergic/Immunologic: Allergic/Immunologic: Reports no additional allergic/immunologic complaints [facility] Past Medical History Medical History (Updated 03/23/23 @ 20:35 by Meagan Farrell NP) Allergic rhinitis BPH (benign prostatic hyperplasia) Chronic a-fib Depression with anxiety Heart failure High cholesterol Hyperlipidemia Hypertension Obstructive sleep apnea Thyroid disease Surgical History Surgical History (Updated 03/23/23 @ 20:27 by Meagan Farrell NP) H/O cataract extraction H/O hernia repair History of total hip replacement Bilateral Pacemaker S/P tonsillectomy and adenoidectomy Total knee replacement status Family History Family History Sibling Family history of lung cancer Father Family history of coronary artery disease Social History Social History (Updated 03/23/23 @ 20:29 by Meagan Farrell NP) Social History: The patient is . Has 4 children. He lives in his own home with 24/7 care. He is retired from a [employer]. With [employer]. Code status full code Smoking status: Former smoker Second hand tobacco smoke exposure: No Alcohol intake: current Substance use: never Substance use type: does
--- NOTE | 2023-03-23 18:14 | ADMGEN ---
This patient, Mason Hutson, was admitted to Medical Room 347-. Patient/family oriented to hospital policies and general routines including ID bracelet, bed and alarms, visiting hours, pain management, procedures, bathroom and other care routines, personal items, smoking policy, room service/diet, and visiting hours. Information on how to activate the Rapid Response Team has been discussed. Patient/Family are encouraged to report perceived risks to care and to ask questions if they do not understand what they are told or what they should do.
[2023-03-23] MEDS: MONTELUKAST SODIUM 10 MG TABLET PO (22:33)
[2023-03-23] MEDS: GABAPENTIN 100 MG CAPSULE PO (22:33)
[2023-03-23] MEDS: ceFAZolin 1 GM/NS 50 ML 1 GM/50 ML BAG IVPB (23:00)
[2023-03-23] MEDS: ATORVASTATIN 20 MG TABLET BY MOUTH (23:30)
[2023-03-24] VITALS (12 sets, daily range): BP systolic 105–119; BP diastolic 59–63; PULSE 73–81; RESP 17–20; TEMP 36–36.6; O2SAT 93–99
[2023-03-24] MEDS: LEVOTHYROXINE SODIUM 100 MCG TABLET BY MOUTH (06:18)
[2023-03-24] MEDS: ceFAZolin 1 GM/NS 50 ML 1 GM/50 ML BAG IVPB ×3 (06:18→21:13)
[2023-03-24 06:27] LABS: Basophils Percent Auto 0.3 % (0.2-1.2); Eosinophils Absolute Auto 0.1 K/mm3 (0-0.3); Eosinophils Percent Auto 0.9 % (0-4.4); Hemoglobin 13.3 g/dL (14.0-18.0); Immature Granulocyte Absolute 0.07 K/mm3 (0.00-0.031); Immature Granulocyte Percent A 0.4 % (0-0.5); Lymphocytes Absolute Auto 10.68 K/mm3 (0.9-3.2); Lymphocytes Percent Auto 68.1 % (18.3-44.2); Mean Corpuscular HGB Conc 32.4 g/dl (32-36); Mean Corpuscular Hemoglobin 34.1 pg (26-34); Mean Corpuscular Volume 105.1 fl (80-100); Mean Platelet Volume 9.9 fl (7.4-10.4); Monocytes Absolute Auto 0.7 K/mm3 (0.1-0.6); Monocytes Percent Auto 4.2 % (2.6-8.5); Neutrophils Absolute Auto 4.1 K/mm3 (1.3-6.7); Neutrophils Percent Auto 26.1 % (45.5-73.1); Nucleated Red Blood Cells Perc 0.1 % (0.0-0.2); Platelet Count Result 148 k/mm3 (150-375); Red Cell Distribution Width 13.2 % (11.5-14.5); White Blood Count 15.7 K/mm3 (4.5-10.0)
[2023-03-24 06:36] LABS: Anion Gap 5 mmol/L (8-16); Blood Urea Nitrogen 44 mg/dL (9-20); Calcium 8.5 mg/dL (8.4-10.2); Carbon Dioxide 38 mmol/L (22-30); Chloride 94 mmol/L (98-107); Estimated CRCL calculation 64 ml/min; Estimated Glomerular Filt Rate 58; Glucose 100 mg/dL (65-110); Sodium 137 mmol/L (137-145)
[2023-03-24 07:00] LABS: Atypical Lymphocytes Present; Schistocytes None Seen (NORMAL); Smudge Cells FEW
--- NOTE | 2023-03-24 07:44 | PM.IMPN ---
Progress Note: A&P Assessment and Plan (1) Hypotension: Code(s): I95.9 - Hypotension, unspecified Status: Acute (2) Skin laceration: Status: Acute (3) Obstructive sleep apnea: Code(s): G47.33 - Obstructive sleep apnea (adult) (pediatric) Status: Acute (4) Chronic a-fib: Code(s): I48.20 - Chronic atrial fibrillation, unspecified Status: Acute (5) BPH (benign prostatic hyperplasia): Code(s): N40.0 - Benign prostatic hyperplasia without lower urinary tract symptoms Status: Acute (6) Depression with anxiety: Code(s): F41.8 - Other specified anxiety disorders Status: Acute (7) Hypertension: Code(s): I10 - Essential (primary) hypertension Status: Acute (8) Hyperlipidemia: Code(s): E78.5 - Hyperlipidemia, unspecified Status: Acute (9) CHF (congestive heart failure): Code(s): I50.9 - Heart failure, unspecified Status: Acute (10) Hypothyroidism: Code(s): E03.9 - Hypothyroidism, unspecified Status: Acute (11) Allergic rhinitis: Code(s): J30.9 - Allergic rhinitis, unspecified Status: Acute Plan Assessment and plan (1) Skin laceration: ?Status:?Acute ?Assessment and Plan: Patient stated that he fell out of bed approximately 1 week ago when he was trying to reach for his CPAP machine.? Patient has several lacerations to his arms.? His white count is elevated to 19.? His blood pressure was soft and he is afebrile.? started him on Ancef for possible skin infection.? apply Steri-Strips to those areas.? Blood cultures are pending.? Patient was recently was treated for UTI.? Repeated UA unremarkable, Consult PT OT social work case manager live in caregiver for evaluation and assisting placement (2) Chronic a-fib: ?Code(s): I48.20 - Chronic atrial fibrillation, unspecified ?Status:?Acute ?Assessment and Plan: Patient's heart rate is controlled.? He has a regular rate.? Patient's Coreg is on hold at this time because he was hypotensive.? May need to adjust his dose tomorrow.? Continue with Pradaxa. (3) Hypotension: ?Code(s): I95.9 - Hypotension, unspecified ?Status:?Acute ?Assessment and Plan: Patient was given IV fluids.? Suspecting overdose of blood pressure medicine by accident Blood pressure stable no sign of sepsis c/w NS iv 100ml/h (4) Obstructive sleep apnea: ?Code(s): G47.33 - Obstructive sleep apnea (adult) (pediatric) ?Status:?Acute ?Assessment and Plan: Continue with home settings for CPAP machine. (5) BPH (benign prostatic hyperplasia): ?Code(s): N40.0 - Benign prostatic hyperplasia without lower urinary tract symptoms ?Status:?Acute ?Assessment and Plan: Continue with finasteride. (6) Allergic rhinitis: ?Code(s): J30.9 - Allergic rhinitis, unspecified ?Status:?Acute ?Assessment and Plan: Continue with nasal spray. (7) Depression with anxiety: ?Code(s): F41.8 - Other specified anxiety disorders ?Status:?Acute ?Assessment and Plan: Continue with Prozac.? Continue trazodone. (8) Hyperlipidemia: ?Code(s): E78.5 - Hyperlipidemia, unspecified ?Status:?Acute ?Assessment and Plan: Continue with atorvastatin. (9) Hypertension: ?Code(s): I10 - Essential (primary) hypertension ?Status:?Acute ?Assessment and Plan: Coreg is on hold at this time due to hypotension.? Losartan is on hold at this time due to hypotension. (10) CHF (congestive heart failure): ?Code(s): I50.9 - Heart failure, unspecified ?Status:?Acute ?Assessment and Plan: Losartan and Coreg are on hold at this time due to hypotension. (11) Hypothyroidism: ?Code(s): E03.9 - Hypothyroidism, unspecified ?Status:?Acute ?Assessment and Plan: Check thyroid and continue with levothyroxine. Subjective Date/time seen: 03/24/23 07:44 Interval history: I saw on exam patient
[2023-03-24] MEDS: AZELASTINE HCL NASAL 0.1% 137 MCG/SPR 30 ML BTL 2 SPRAY NASAL ×2 (09:10→17:54)
[2023-03-24] MEDS: CYANOCOBALAMIN 1,000 MCG TABLET 1000 MCG PO (09:11)
[2023-03-24] MEDS: FLUoxetine HCL 20 MG CAPSULE 40 MG PO (09:11)
[2023-03-24] MEDS: FLUTICASONE PROPIONATE 0.05% NA SPR 16 GM BTL (*BKC) 2 SPRAY NASAL (09:11)
[2023-03-24] MEDS: FOLIC ACID 0.4 MG TABLET PO (09:11)
[2023-03-24] MEDS: POTASSIUM CHLORIDE 10 MEQ ER TABLET PO ×2 (09:11→17:52)
[2023-03-24] MEDS: DABIGATRAN ETEXILATE 150 MG CAPSULE PO ×2 (09:11→17:52)
[2023-03-24] MEDS: TAMSULOSIN HCL 0.4 MG CAPSULE PO (09:11)
--- NOTE | 2023-03-24 11:23 | PHAR ---
The patient's home med of Naltrexone 50mg has been verified.
[2023-03-24] MEDS: SODIUM CHLORIDE 0.9% IV 1,000 ML 100 ML IV CONT (16:21)
[2023-03-24] MEDS: GABAPENTIN 100 MG CAPSULE PO (21:13)
[2023-03-24] MEDS: MELATONIN 5 MG TABLET PO (21:13)
[2023-03-24] MEDS: traZODone HCL 50 MG TABLET 100 MG PO (21:13)
[2023-03-24] MEDS: MONTELUKAST SODIUM 10 MG TABLET PO (21:13)
[2023-03-24] MEDS: ATORVASTATIN 20 MG TABLET BY MOUTH (21:13)
[2023-03-24] MEDS: DICLOFENAC SODIUM 1% 100 GM GEL (*BKC) 1 APPLIC TOPICAL (21:15)
[2023-03-25] VITALS: PULSE 75
[2023-03-25 02:15] VITALS: PULSE 69; RESP 15; O2SAT 94
[2023-03-25 04:00] VITALS: PULSE 74
[2023-03-25 05:33] VITALS: BP 116/61; PULSE 78; RESP 16; TEMP 36.6; O2SAT 97
[2023-03-25] MEDS: LEVOTHYROXINE SODIUM 100 MCG TABLET BY MOUTH (05:43)
[2023-03-25] MEDS: ceFAZolin 1 GM/NS 50 ML 1 GM/50 ML BAG IVPB (05:44)
[2023-03-25] MEDS: SODIUM CHLORIDE 0.9% IV 1,000 ML 100 ML IV CONT ×2 (05:46→10:29)
[2023-03-25 07:55] VITALS: O2SAT 96
--- NOTE | 2023-03-25 09:20 | PM.IMPN ---
Progress Note: A&P Assessment and Plan (1) Hypotension: Code(s): I95.9 - Hypotension, unspecified Status: Acute (2) Skin laceration: Status: Acute (3) Obstructive sleep apnea: Code(s): G47.33 - Obstructive sleep apnea (adult) (pediatric) Status: Acute (4) Chronic a-fib: Code(s): I48.20 - Chronic atrial fibrillation, unspecified Status: Acute (5) BPH (benign prostatic hyperplasia): Code(s): N40.0 - Benign prostatic hyperplasia without lower urinary tract symptoms Status: Acute (6) Depression with anxiety: Code(s): F41.8 - Other specified anxiety disorders Status: Acute (7) Hypertension: Code(s): I10 - Essential (primary) hypertension Status: Acute (8) Hyperlipidemia: Code(s): E78.5 - Hyperlipidemia, unspecified Status: Acute (9) CHF (congestive heart failure): Code(s): I50.9 - Heart failure, unspecified Status: Acute (10) Hypothyroidism: Code(s): E03.9 - Hypothyroidism, unspecified Status: Acute (11) Allergic rhinitis: Code(s): J30.9 - Allergic rhinitis, unspecified Status: Acute Plan Assessment and plan (1) Skin laceration: ?Status:?Acute ?Assessment and Plan: Patient stated that he fell out of bed approximately 1 week ago when he was trying to reach for his CPAP machine.? Patient has several lacerations to his arms.? His white count is elevated to 19.? His blood pressure was soft and he is afebrile.? started him on Ancef for possible skin infection.? apply Steri-Strips to those areas.? Blood cultures no growth so far Patient was recently was treated for UTI.? Repeated UA unremarkable, Consult PT OT social media sr strategy manager acute care physician for evaluation and assisting placement. Patient preferred to go home will continue home health care (2) Chronic a-fib: ?Code(s): I48.20 - Chronic atrial fibrillation, unspecified ?Status:?Acute ?Assessment and Plan: Patient's heart rate is controlled.? He has a regular rate.? Patient's Coreg is on hold at this time because he was hypotensive.? Continue with Pradaxa. Recommend patient to see primary care or coal tower operator to resume Coreg and low-dose (3) Hypotension: ?Code(s): I95.9 - Hypotension, unspecified ?Status:?Acute ?Assessment and Plan: Patient was given IV fluids.? Suspecting overdose of blood pressure medicine and enteric medication Blood pressure stable no sign of sepsis Received nS iv 100ml/h Appropriately stable now DC IV fluid (4) Obstructive sleep apnea: ?Code(s): G47.33 - Obstructive sleep apnea (adult) (pediatric) ?Status:?Acute ?Assessment and Plan: Continue with home settings for CPAP machine. (5) BPH (benign prostatic hyperplasia): ?Code(s): N40.0 - Benign prostatic hyperplasia without lower urinary tract symptoms ?Status:?Acute ?Assessment and Plan: Continue with finasteride. (6) Allergic rhinitis: ?Code(s): J30.9 - Allergic rhinitis, unspecified ?Status:?Acute ?Assessment and Plan: Continue with nasal spray. (7) Depression with anxiety: ?Code(s): F41.8 - Other specified anxiety disorders ?Status:?Acute ?Assessment and Plan: Continue with Prozac.? Continue trazodone. (8) Hyperlipidemia: ?Code(s): E78.5 - Hyperlipidemia, unspecified ?Status:?Acute ?Assessment and Plan: Continue with atorvastatin. (9) Hypertension: ?Code(s): I10 - Essential (primary) hypertension ?Status:?Acute ?Assessment and Plan: Coreg is on hold at this time due to hypotension.? Losartan is on hold at this time due to hypotension. Continue hypertension medication anti chart, recommend patient to see primary care doctor in 1 week, resume hypertension medication if blood pressure pump up (10) CHF (congestive heart failure): ?Code(s): I50.9 - Heart failure, unspecified ?Status:?Acute ?Assessment and Plan: C
[2023-03-25 09:23] LABS: Basophils Percent Auto 0.3 % (0.2-1.2); Eosinophils Absolute Auto 0.1 K/mm3 (0-0.3); Eosinophils Percent Auto 1.1 % (0-4.4); Hematocrit 38.6 % (42.0-52.0); Hemoglobin 12.5 g/dL (14.0-18.0); Immature Granulocyte Absolute 0.05 K/mm3 (0.00-0.031); Immature Granulocyte Percent A 0.4 % (0-0.5); Lymphocytes Absolute Auto 5.68 K/mm3 (0.9-3.2); Lymphocytes Percent Auto 49.4 % (18.3-44.2); Mean Corpuscular HGB Conc 32.4 g/dl (32-36); Mean Corpuscular Hemoglobin 34.2 pg (26-34); Mean Corpuscular Volume 105.8 fl (80-100); Mean Platelet Volume 10.1 fl (7.4-10.4); Monocytes Absolute Auto 0.6 K/mm3 (0.1-0.6); Monocytes Percent Auto 5.1 % (2.6-8.5); Neutrophils Percent Auto 43.7 % (45.5-73.1); Platelet Count Result 149 k/mm3 (150-375); Red Blood Count 3.65 M/mm3 (4.6-6.20); Red Cell Distribution Width 13.4 % (11.5-14.5); White Blood Count 11.5 K/mm3 (4.5-10.0)
[2023-03-25 09:40] LABS: Anion Gap 3 mmol/L (8-16); Blood Urea Nitrogen 29 mg/dL (9-20); Calcium 8.3 mg/dL (8.4-10.2); Carbon Dioxide 36 mmol/L (22-30); Chloride 98 mmol/L (98-107); Estimated CRCL calculation 93 ml/min; Estimated Glomerular Filt Rate > 60; Glucose 106 mg/dL (65-110); Sodium 137 mmol/L (137-145)
[2023-03-25] MEDS: AZELASTINE HCL NASAL 0.1% 137 MCG/SPR 30 ML BTL 2 SPRAY NASAL (10:21)
[2023-03-25] MEDS: FLUTICASONE PROPIONATE 0.05% NA SPR 16 GM BTL (*BKC) 2 SPRAY NASAL (10:22)
[2023-03-25] MEDS: DABIGATRAN ETEXILATE 150 MG CAPSULE PO (10:23)
[2023-03-25] MEDS: POTASSIUM CHLORIDE 10 MEQ ER TABLET PO (10:23)
[2023-03-25] MEDS: FLUoxetine HCL 20 MG CAPSULE 40 MG PO (10:23)
[2023-03-25] MEDS: TAMSULOSIN HCL 0.4 MG CAPSULE PO (10:23)
[2023-03-25] MEDS: FOLIC ACID 0.4 MG TABLET PO (10:24)
[2023-03-25] MEDS: NALTREXONE 50 MG 50 EACH PO (10:25)
[2023-03-25] MEDS: ALPRAZolam (*CRX) 0.5 MG TABLET PO (13:58)
[2023-03-25 14:00] VITALS: BP 112/56; PULSE 70; RESP 18; TEMP 36.8; O2SAT 98
--- NOTE | 2023-03-25 14:11 | PM.DS ---
DS: Admitting Diagnosis Discharge Date Today Admitting Diagnosis (1) Hypotension: ?Code(s): I95.9 - Hypotension, unspecified ?Status:?Acute (2) Skin laceration: ?Status:?Acute (3) Obstructive sleep apnea: ?Code(s): G47.33 - Obstructive sleep apnea (adult) (pediatric) ?Status:?Acute (4) Chronic a-fib: ?Code(s): I48.20 - Chronic atrial fibrillation, unspecified ?Status:?Acute (5) BPH (benign prostatic hyperplasia): ?Code(s): N40.0 - Benign prostatic hyperplasia without lower urinary tract symptoms ?Status:?Acute (6) Depression with anxiety: ?Code(s): F41.8 - Other specified anxiety disorders ?Status:?Acute (7) Hypertension: ?Code(s): I10 - Essential (primary) hypertension ?Status:?Acute (8) Hyperlipidemia: ?Code(s): E78.5 - Hyperlipidemia, unspecified ?Status:?Acute (9) CHF (congestive heart failure): ?Code(s): I50.9 - Heart failure, unspecified ?Status:?Acute (10) Hypothyroidism: ?Code(s): E03.9 - Hypothyroidism, unspecified ?Status:?Acute (11) Allergic rhinitis: ?Code(s): J30.9 - Allergic rhinitis, unspecified ?Status:?Acute DS: Discharge Diagnosis Discharge Diagnosis (1) Hypotension: Code(s): I95.9 - Hypotension, unspecified Status: Acute (2) Skin laceration: Status: Acute (3) Obstructive sleep apnea: Code(s): G47.33 - Obstructive sleep apnea (adult) (pediatric) Status: Acute (4) Chronic a-fib: Code(s): I48.20 - Chronic atrial fibrillation, unspecified Status: Acute (5) BPH (benign prostatic hyperplasia): Code(s): N40.0 - Benign prostatic hyperplasia without lower urinary tract symptoms Status: Acute (6) Depression with anxiety: Code(s): F41.8 - Other specified anxiety disorders Status: Acute (7) Hypertension: Code(s): I10 - Essential (primary) hypertension Status: Acute (8) Hyperlipidemia: Code(s): E78.5 - Hyperlipidemia, unspecified Status: Acute (9) CHF (congestive heart failure): Code(s): I50.9 - Heart failure, unspecified Status: Acute (10) Hypothyroidism: Code(s): E03.9 - Hypothyroidism, unspecified Status: Acute (11) Allergic rhinitis: Code(s): J30.9 - Allergic rhinitis, unspecified Status: Acute DS: Summary Hospital Course Reason for hospitalization: Dizziness Hospital Course: Per H&P, this is an 82-year-old male patient who lives in his own home and has care.? His 2 sons are at the bedside helping him answer questions.? The patient stated he was recently discharged from [facility] with a uti about a week ago. He also stated that he fell out of bed on week ago ago and has multiple bruises and skin tears. He has multiple dressings on aravind arms. He has completed? his abx for uti. His care given checked his bp and it was found to be low and then was brought to the er.? The patient denies any further urinary tract symptoms.? His white count is 19.1.? I did remove his dressings from his bilateral forearms but none of his abrasions appear to be infected.? His urine was negative for UTI.? Chest x-ray was read as no acute cardiopulmonary disease.? No antibiotics were started at this time as there was no source of infection noted.? It was felt that the patient had a change in medication and perhaps the caregiver unintentionally had given and the patient too much blood pressure medication.? Blood cultures were obtained and the patient was responding to IV fluids.? His blood pressure came up to 123/81 and is now 103/60.? The patient is being admitted to observation status on the date of service of 03/23/2023. The following medication issues have been addressed during the hospitalization (1) Skin laceration: ?Status:?Acute ?Assessment and Plan: Patient stated that he fell out of bed approximately 1 week ago when he was trying to reach for his CPAP machine.? P
== END 2023-03-25 17:59 | disposition home or self-care (01) | DRG 312 ==
LOC: ANHED 17:39 → ANH3MED 17:42
PROVIDERS: Emergency Medicine; Nurse Practitioner; Admitting Provider Internal Medicine; Emergency Provider Nurse Practitioner Family; Visit Provider Hospitalist
DX: I95.2 Hypotension due to drugs (principal); E87.1 Hypo-osmolality and hyponatremia; I48.20 Chronic atrial fibrillation, unspecified; Z68.41 Body mass index [BMI] 40.0-44.9, adult; T46.5X1A Poisoning by other antihypertensive drugs, accidental (unintentional), initial encounter; T44.7X1A Poisoning by beta-adrenoreceptor antagonists, accidental (unintentional), initial encounter; G47.33 Obstructive sleep apnea (adult) (pediatric); N40.0 Benign prostatic hyperplasia without lower urinary tract symptoms; F41.8 Other specified anxiety disorders; E86.0 Dehydration; E78.5 Hyperlipidemia, unspecified; I11.0 Hypertensive heart disease with heart failure; I50.9 Heart failure, unspecified; E03.9 Hypothyroidism, unspecified; J30.9 Allergic rhinitis, unspecified; S41.112A Laceration without foreign body of left upper arm, initial encounter; S41.111A Laceration without foreign body of right upper arm, initial encounter; H11.31 Conjunctival hemorrhage, right eye; W06.XXXA Fall from bed, initial encounter; Z96.643 Presence of artificial hip joint, bilateral; Z96.659 Presence of unspecified artificial knee joint; Z87.891 Personal history of nicotine dependence; E66.3 Overweight
CPT/HCPCS: 36415; 71045; 80048; 80053; 81001; 83605; 84443; 85025; 85610; 85730; 86140; 87040; 93005; 96365; 99285; A9270; G0378; J0690; J3370; J7030